=== PATIENT | male | born 1970 | race Caucasian/White ===

== ENCOUNTER 2016-12-06 15:55 | Inpatient (IN) | payer BC ==
[~2016-12-06] VITALS: Ht 190.5 cm; Wt 169.7 kg
[~2016-12-06 15:55] MED LIST: AMBIEN 10MG10 M1 PO; ATIVAN0.5 MG PO; ATIVAN2 MG PO; BENEMID500 MG PO; BIAXIN 500MG T500 MG PO; BUTORPHANOL10 MG/M1 NS; CO Q-1010 M1 PO; COLACE 100100 MG/CAP PO; FOLIC ACID 40400 MCG PO; FOLIC ACID PO; IMURAN 50MG TAB50 MG PO; LEVOTHROID0.125 MG PO; LEVOXYL0.125 MG PO; MELATONIN5 M1 SL; METHOTREXA2.5 MG/TAB PO; METHOTREXATE25 MG/M2 IJ; MICARDIS20 MG PO; MULTIPLE VITAMI1 CAP PO; MVI PO; NO HOME MEDICATIONS; NORCO 325 MG-7.1 TAB PO; PERCOCET 325 MG1 TAB PO; PERFOROMIS20 MCG/2 M IH; ROXICODONE 55 MG/TAB PO; SINGULAIR 110 MG/TAB PO; SYMBICORT1 AE1; TUDORZA IH; TYLENOL 500MG500 MG PO; VICODIN 5/5001 UDTAB PO; XARELTO10 MG PO; ZESTRIL 10MG10 MG PO; ZYRTEC 10MG10 MG PO
[2017-02-06] VITALS (11 sets, daily range): BP systolic 101–143; BP diastolic 47–77; PULSE 57–74; TEMP 98–98.3
[2017-02-06] MEDS ORDERED: SINGULAIR 110 MG/TAB PO (07:55)
[2017-02-07 00:06] VITALS: BP 143/70; PULSE 110; TEMP 98.1
[2017-02-07 04:00] VITALS: BP 137/69; PULSE 111; TEMP 98.2
[2017-02-07 06:17] LABS: HEMATOCRIT 38.7 % (42.0-52.0); HEMOGLOBIN 12.4 g/dl (13.5-18.0)
[2017-02-07 07:30] VITALS: BP 137/63; PULSE 95; TEMP 98.8
[2017-02-07 11:40] VITALS: BP 119/67; PULSE 82; TEMP 98.1
[2017-02-07 16:15] VITALS: BP 139/67; PULSE 83; TEMP 98.4
[2017-02-07 20:03] VITALS: BP 127/68; PULSE 92; TEMP 98.4
[2017-02-08 02:40] VITALS: BP 127/71; PULSE 49; TEMP 98.2
[2017-02-08 06:03] VITALS: BP 105/58; PULSE 69; TEMP 98.8
[2017-02-08 07:17] LABS: HEMATOCRIT 38.6 % (42.0-52.0); HEMOGLOBIN 12.3 g/dl (13.5-18.0)
[2017-02-08 07:45] VITALS: BP 132/66; PULSE 98; TEMP 97.9
[2017-02-08 13:15] VITALS: BP 133/69; PULSE 103
== END 2017-02-08 14:25 | disposition home health service (06) | DRG 470 ==
LOC: JCC 02-06 06:44
PROVIDERS: Orthopaedic Surgery
PROC: 0SRD0J9 Replacement of Left Knee Joint with Synthetic Substitute, Cemented, Open Approach (ICD-10-PCS; principal; 2017-02-06 07:30)
DX: M17.5 Other unilateral secondary osteoarthritis of knee (principal); Z68.42 Body mass index [BMI] 45.0-49.9, adult; E66.01 Morbid (severe) obesity due to excess calories; Z87.891 Personal history of nicotine dependence
CPT/HCPCS: A4315; A9284; C1713; C1776; J1170; J2250; J2704; J7120

== ENCOUNTER → 2017-01-30 | Outpatient (CLI) | payer BC ==
[2017-01-30 14:45] LABS: HIV 1/2 Antibodies Non-Reactive; HIV-1p24 Antigen Non-Reactive
== END ==
LOC: COL.LAB 10:56
PROVIDERS: Orthopaedic Surgery
DX: Z01.812 Encounter for preprocedural laboratory examination (principal)

== ENCOUNTER 2018-10-10 14:45 | Outpatient (RCR) | payer BC ==
[2018-10-14] MEDS ORDERED: IMURAN 50MG TAB50 MG PO (15:28)
== END 2018-12-16 | disposition home or self-care (01) ==
LOC: WSST
DX: J38.7 Other diseases of larynx (principal); K21.9 Gastro-esophageal reflux disease without esophagitis; J44.9 Chronic obstructive pulmonary disease, unspecified; Z87.891 Personal history of nicotine dependence

== ENCOUNTER 2018-10-14 14:56 | Emergency (ER) | payer BC ==
[~2018-10-14] VITALS: Ht 182.9 cm; Wt 168.2 kg
[2018-10-14 15:06] VITALS: TEMP 97.7
[2018-10-14] MEDS ORDERED: IMURAN 50MG TAB50 MG PO (15:28)
[2018-10-14 16:02] LABS: BASO % 0.3 % (0.0-2.0); EOS # 0.1 (0.0-0.7); EOS % 0.8 % (0-4.0); GRAN # 4.7 (1.4-6.5); GRAN % 74.8 % (42.2-75.2); HEMATOCRIT 40.9 % (42.0-52.0); HEMOGLOBIN 13.5 g/dl (13.5-18.0); LYMPH # 0.7 (1.2-3.4); LYMPH % 11.1 % (20.0-51.0); MEAN CELL VOLUME 93 fl (80.0-100.0); MEAN CORPUSCULAR HEMOGLOBIN 31 pg (27.0-31.0); MEAN CORPUSCULAR HGB CONC 33 g/dl (33.0-37.0); MEAN PLATELET VOLUME 10.3 fl (7.4-10.4); MONO # 0.8 (0.1-0.6); MONO % 12.5 % (1.7-9.3); PLATELET COUNT 187 K/mm3 (130-400); RED BLOOD COUNT 4.41 M/mm3 (4.20-5.60); REDCELL DISTRIBUTION WIDTH-CV 14.6 % (11.5-14.5)
[2018-10-14 16:04] LABS: INR 0.9 (0.8-3.0); PROTHROMBIN TIME 10.5 SECONDS (9.7-12.8)
[2018-10-14 16:09] LABS: ALANINE AMINOTRANSFERASE 35 U/L (21-72); ALBUMIN 3.4 gm/dL (3.5-5.0); ALKALINE PHOSPHATASE 99 U/L (50-136); AMYLASE 86 U/L (30-110); ANION GAP 7 mmol/L (7-16); AST,SGOT 24 U/L (15-37); BILIRUBIN,TOTAL 0.2 mg/dL (0.0-1.0); BLOOD UREA NITROGEN 24 mg/dL (9-20); CALCIUM 8.8 mg/dL (8.4-10.2); CARBON DIOXIDE 26 mmol/L (22-30); CHLORIDE 108 mmol/L (98-107); CREATININE, serum 1.15 mg/dL (0.66-1.25); GLUCOSE 140 mg/dL (74-106); LIPASE 103 U/L (23-300); POTASSIUM 4.3 mmol/L (3.4-5.0); SODIUM 140 mmol/L (137-145); TOTAL PROTEIN 6.2 gm/dL (6.4-8.2)
[2018-10-14 16:28] LABS: TROPONIN-I < 0.012 ng/mL (0.000-0.035)
[2018-10-14 16:38] LABS: C-REACTIVE PROTEIN 1.6 mg/dL (0.0-0.9)
[2018-10-14 16:55] LABS: COLLECTION METHOD CLEAN CATCH
[2018-10-14 17:01] LABS: PH 5 (5-8); SQUAMOUS EPITHELIAL None Seen /hpf; URINE APPEARANCE Clear; URINE BACTERIA None Seen /hpf; URINE BILIRUBIN Negative (NEGATIVE); URINE BLOOD 1+ (NEGATIVE); URINE COLOR Yellow; URINE GLUCOSE Negative (NEGATIVE); URINE KETONE Negative (NEGATIVE); URINE LEUKOCYTE ESTERASE Negative (NEGATIVE); URINE NITRATE Negative (NEGATIVE); URINE PROTEIN(semi-quant) Negative (NEGATIVE); URINE RBC 0-2 /hpf; URINE UROBILINOGEN Negative (NEGATIVE)
[2018-10-14 20:20] VITALS: BP 108/81; PULSE 64
== END 2018-10-14 20:26 | disposition home or self-care (01) ==
LOC: COL.ER 14:56
PROVIDERS: Emergency Medicine
DX: R55 Syncope and collapse (principal); E86.0 Dehydration; J44.9 Chronic obstructive pulmonary disease, unspecified; E03.9 Hypothyroidism, unspecified; E66.9 Obesity, unspecified; Z87.891 Personal history of nicotine dependence
CPT/HCPCS: J7030; Q9967

== ENCOUNTER 2019-02-13 08:26 | Day surgery (SDC) | payer BC ==
[~2019-02-13] VITALS: Ht 183 cm; Wt 176.0 kg
[2019-02-13 09:30] VITALS: BP 123/69; PULSE 67; TEMP 98
[2019-02-13] MEDS ORDERED: STIOLTO RESPIMAT4 GM IH (09:37)
[2019-02-13] MEDS ORDERED: LUTEIN20 M1 PO (09:39)
[2019-02-13] MEDS ORDERED: VITAMIN B COMPL1 SGL PO (09:39)
[2019-02-13] MEDS ORDERED: DIGESTIVE PROB1 EACH PO (09:40)
[2019-02-13] MEDS ORDERED: CARDIZEM CD 12120 MG PO (09:43)
[2019-02-13] MEDS ORDERED: PREDNISONE10 MG PO (09:43)
[2019-02-13] MEDS ORDERED: CLEOCIN HCL300 MG PO (09:51)
[2019-02-13 10:15] VITALS: BP 126/70; PULSE 79
--- NOTE | 2019-02-13 10:27 | NUR ---
Discharge instructions given to pt.Dressing observed clean,dry,intact.pt escorted out by this nurse.
== END 2019-02-13 10:31 | disposition home or self-care (01) ==
LOC: COL.CAR 08:26
DX: I47.1 Supraventricular tachycardia (principal); I12.9 Hypertensive chronic kidney disease with stage 1 through stage 4 chronic kidney disease, or unspecified chronic kidney disease; N18.1 Chronic kidney disease, stage 1; J44.9 Chronic obstructive pulmonary disease, unspecified; M31.30 Wegener's granulomatosis without renal involvement; Z87.891 Personal history of nicotine dependence; E07.9 Disorder of thyroid, unspecified; R56.9 Unspecified convulsions; Z88.1 Allergy status to other antibiotic agents; Z88.2 Allergy status to sulfonamides; Z79.899 Other long term (current) drug therapy

== ENCOUNTER → 2019-03-21 | Outpatient (CLI) | payer BC ==
[~2019-03-21] MED LIST changes: +CARDIZEM CD 12120 MG PO; +CLEOCIN HCL300 MG PO; +DIGESTIVE PROB1 EACH PO; +LUTEIN20 M1 PO; +PREDNISONE10 MG PO; +STIOLTO RESPIMAT4 GM IH; +VITAMIN B COMPL1 SGL PO
[2019-03-21 10:33] LABS: HEMATOCRIT 42.7 % (42.0-52.0); HEMOGLOBIN 13.9 g/dl (13.5-18.0); MEAN CELL VOLUME 88 fl (80.0-100.0); MEAN CORPUSCULAR HEMOGLOBIN 29 pg (27.0-31.0); MEAN CORPUSCULAR HGB CONC 33 g/dl (33.0-37.0); MEAN PLATELET VOLUME 10.2 fl (7.4-10.4); PLATELET COUNT 220 K/mm3 (130-400); RED BLOOD COUNT 4.86 M/mm3 (4.20-5.60); REDCELL DISTRIBUTION WIDTH-CV 14.6 % (11.5-14.5)
[2019-03-21 10:48] LABS: ERYTHROCYTE SEDIMENTATION RATE 15 mm/hr (0-15)
== END ==
LOC: COL.LAB 10:14
PROVIDERS: Orthopaedic Surgery
DX: Z01.812 Encounter for preprocedural laboratory examination (principal)

== ENCOUNTER 2019-04-25 09:15 | Outpatient (RCR) | payer BC | END 2019-04-28 | disposition home or self-care (01) | LOC: WSC | DX: M06.9 Rheumatoid arthritis, unspecified (principal); Z96.653 Presence of artificial knee joint, bilateral | CPT/HCPCS: G0283-GP ==

== ENCOUNTER 2019-07-25 09:00 | Outpatient (RCR) | payer BC | END 2019-07-29 | disposition still patient (30) | LOC: WSPT | DX: M06.9 Rheumatoid arthritis, unspecified (principal); Z96.652 Presence of left artificial knee joint ==

== ENCOUNTER 2019-08-01 09:25 | Outpatient (RCR) | payer BC | END 2019-08-30 11:27 | disposition home or self-care (01) | LOC: WSPT 09:25 | DX: M06.9 Rheumatoid arthritis, unspecified (principal); Z96.653 Presence of artificial knee joint, bilateral ==

== ENCOUNTER → 2020-07-29 | Outpatient (CLI) | payer BC | LOC: COL.RAD 11:46 | DX: M47.817 Spondylosis without myelopathy or radiculopathy, lumbosacral region (principal) ==

== ENCOUNTER 2021-07-22 10:00 | Outpatient (RCR) | payer BC | END 2021-08-06 | disposition home or self-care (01) | LOC: PT.GENESIS | DX: M17.0 Bilateral primary osteoarthritis of knee (principal) ==

== ENCOUNTER 2021-10-01 10:00 | Outpatient (RCR) | payer BC | END 2021-10-04 | disposition home or self-care (01) | LOC: PT.GENESIS | DX: M17.0 Bilateral primary osteoarthritis of knee (principal); M06.9 Rheumatoid arthritis, unspecified ==

== ENCOUNTER 2021-11-02 13:00 | Outpatient (RCR) | payer BC | END 2021-11-04 | disposition home or self-care (01) | LOC: PT.GENESIS | DX: M17.0 Bilateral primary osteoarthritis of knee (principal) ==

== ENCOUNTER → 2021-11-30 | Outpatient (CLI) | payer BC | LOC: COL.VAS 10:06 | DX: R42 Dizziness and giddiness (principal) ==

== ENCOUNTER 2021-12-03 15:15 | Outpatient (RCR) | payer BC | END 2021-12-04 | disposition home or self-care (01) | LOC: PT.GENESIS | DX: M17.0 Bilateral primary osteoarthritis of knee (principal) ==

== ENCOUNTER → 2022-01-04 | Outpatient (RCR) | payer BC | END | disposition home or self-care (01) | LOC: PT.GENESIS | DX: M17.0 Bilateral primary osteoarthritis of knee (principal) ==

== ENCOUNTER 2022-01-28 10:45 | Outpatient (RCR) | payer BC | END 2022-02-03 | disposition still patient (30) | LOC: PT.GENESIS | DX: M17.0 Bilateral primary osteoarthritis of knee (principal) ==

== ENCOUNTER 2022-02-08 13:46 | Emergency (ER) | payer BC ==
[~2022-02-08] VITALS: Ht 182.9 cm; Wt 116.4 kg
[2022-02-08 13:54] VITALS: TEMP 98.2
[2022-02-08 14:19] LABS: BASO # 0.1 K/mm3 (0.0-0.2); BASO % 0.6 % (0.0-2.0); EOS # 0.1 K/mm3 (0.0-0.7); GRAN # 8.1 K/mm3 (1.4-6.5); GRAN % 88.9 % (42.2-75.2); LYMPH # 0.2 K/mm3 (1.2-3.4); LYMPH % 2.4 % (20.0-51.0); MEAN CELL VOLUME 95 fl (80.0-100.0); MEAN CORPUSCULAR HEMOGLOBIN 32 pg (27-31); MEAN CORPUSCULAR HGB CONC 33 g/dl (33.0-37.0); MEAN PLATELET VOLUME 9.8 fl (7.4-10.4); MONO # 0.6 K/mm3 (0.1-0.6); MONO % 6.7 % (1.7-9.3); PLATELET COUNT 336 K/mm3 (130-400); RED BLOOD COUNT 3.81 M/mm3 (4.20-5.60); REDCELL DISTRIBUTION WIDTH-CV 14.6 % (11.5-14.5)
[2022-02-08 14:20] LABS: HEMATOCRIT 36.1 % (42.0-52.0)
[2022-02-08 14:36] LABS: BILIRUBIN,TOTAL 0.4 mg/dL (0.2-1.2); C-REACTIVE PROTEIN 13.05 mg/dL (0.00-0.50); CALCIUM 9.7 mg/dL (8.4-10.2); CREATININE, serum 1.29 mg/dL (0.72-1.25); POTASSIUM 4.2 mmol/L (3.5-4.5); TOTAL PROTEIN 7.1 gm/dL (6.2-8.1)
[2022-02-08 15:57] VITALS: BP 122/89; PULSE 94
== END 2022-02-08 16:01 | disposition home or self-care (01) ==
LOC: COL.ER 13:46
PROVIDERS: Family Medicine
DX: D63.8 Anemia in other chronic diseases classified elsewhere (principal); E86.0 Dehydration; Z86.16 Personal history of COVID-19; Z28.310 Unvaccinated for COVID-19
CPT/HCPCS: J2405; J7120

== ENCOUNTER 2022-02-27 23:51 | Emergency (ER) | payer BC ==
[~2022-02-27] VITALS: Ht 182.9 cm; Wt 122.7 kg
[2022-02-28 00:40] LABS: HEMOGLOBIN 10.7 g/dl (13.5-18.0); MEAN CELL VOLUME 98 fl (80.0-100.0); MEAN CORPUSCULAR HEMOGLOBIN 31 pg (27-31); MEAN CORPUSCULAR HGB CONC 32 g/dl (33.0-37.0); MEAN PLATELET VOLUME 10.2 fl (7.4-10.4); PLATELET COUNT 221 K/mm3 (130-400); RED BLOOD COUNT 3.46 M/mm3 (4.20-5.60); REDCELL DISTRIBUTION WIDTH-CV 16.5 % (11.5-14.5)
[2022-02-28 00:54] LABS: BAND 7 % (0-10); EOSINOPHIL 1 % (0-4); LYMPHOCYTE 7 % (20.0-51.0); NEUTROPHILS 75 % (42.0-75.2); PLATELET ESTIMATE NORMAL (NORMAL)
[2022-02-28 01:01] LABS: ALBUMIN 2.7 gm/dL (3.5-5.0); BILIRUBIN,TOTAL 0.3 mg/dL (0.2-1.2); CALCIUM 8.7 mg/dL (8.4-10.2); CREATININE, serum 1.14 mg/dL (0.72-1.25); POTASSIUM 4.1 mmol/L (3.5-4.5); TOTAL PROTEIN 5.4 gm/dL (6.2-8.1)
[2022-02-28 02:07] LABS: COLLECTION METHOD CLEAN CATCH
[2022-02-28 02:16] LABS: PH 6 (5-8); SQUAMOUS EPITHELIAL None Seen /hpf (0-10); URINE APPEARANCE Clear (CLEAR/HAZY); URINE BACTERIA None Seen /hpf (NONE SEEN); URINE BLOOD 1+ (NEGATIVE); URINE COLOR Yellow (YELLOW); URINE GLUCOSE Negative (NEGATIVE); URINE KETONE Negative (NEGATIVE); URINE NITRATE Negative (NEGATIVE); URINE PROTEIN(semi-quant) Negative (NEGATIVE); URINE UROBILINOGEN Negative (NEGATIVE)
[2022-02-28 04:34] VITALS: BP 115/78; PULSE 80; TEMP 98.6
== END 2022-02-28 04:34 | disposition home or self-care (01) ==
LOC: COL.ER 23:51
PROVIDERS: Emergency Medicine
DX: D84.9 Immunodeficiency, unspecified (principal); B34.8 Other viral infections of unspecified site
CPT/HCPCS: J0692; J7120; Q9967

== ENCOUNTER → 2022-03-03 | Outpatient (CLI) | payer BC ==
[~2022-03-03] MED LIST changes: +CALCIUM CITRAT200 M2 PO; +DEPAKOTE500 MG PO; +NATURAL MAGNES200 MG PO; +PREDNISONE20 MG PO; +RT ADVAIR 228 DISKUS IH; +SPIRIVA RE2.5 MCG/Ac IH; +SYNTHROID 0.10.15 MG PO; +TRELEGY ELLIPT1 EACH IH
== END ==
LOC: COL.RAD 10:25
DX: K57.30 Diverticulosis of large intestine without perforation or abscess without bleeding (principal); R70.0 Elevated erythrocyte sedimentation rate; Z86.79 Personal history of other diseases of the circulatory system; J98.4 Other disorders of lung; R16.0 Hepatomegaly, not elsewhere classified
CPT/HCPCS: Q9967

== ENCOUNTER 2022-03-04 10:30 | Outpatient (RCR) | payer BC ==
[~2022-03-04 10:30] MED LIST changes: -CALCIUM CITRAT200 M2 PO; -DEPAKOTE500 MG PO; -NATURAL MAGNES200 MG PO; -PREDNISONE20 MG PO; -RT ADVAIR 228 DISKUS IH; -SPIRIVA RE2.5 MCG/Ac IH; -SYNTHROID 0.10.15 MG PO; -TRELEGY ELLIPT1 EACH IH
== END 2022-03-06 | disposition home or self-care (01) ==
LOC: PT.GENESIS
DX: M17.0 Bilateral primary osteoarthritis of knee (principal)

== ENCOUNTER 2022-03-12 03:03 | Inpatient (IN) | payer BC ==
[~2022-03-12] VITALS: Ht 182.9 cm; Wt 112.9 kg
[2022-03-12 03:31] LABS: BASO % 0.5 % (0.0-2.0); EOS # 0.2 K/mm3 (0.0-0.7); EOS % 2.5 % (0.0-4.0); GRAN # 6.7 K/mm3 (1.4-6.5); GRAN % 87.6 % (42.2-75.2); HEMOGLOBIN 11.6 g/dl (13.5-18.0); LYMPH # 0.2 K/mm3 (1.2-3.4); LYMPH % 2.6 % (20.0-51.0); MEAN CELL VOLUME 95 fl (80.0-100.0); MEAN CORPUSCULAR HEMOGLOBIN 30 pg (27-31); MEAN CORPUSCULAR HGB CONC 32 g/dl (33.0-37.0); MONO # 0.4 K/mm3 (0.1-0.6); MONO % 5.5 % (1.7-9.3); PLATELET COUNT 185 K/mm3 (130-400); RED BLOOD COUNT 3.86 M/mm3 (4.20-5.60); REDCELL DISTRIBUTION WIDTH-CV 16.2 % (11.5-14.5)
[2022-03-12 03:41] LABS: HEMATOCRIT 36.6 % (42.0-52.0)
[2022-03-12 03:56] LABS: ALANINE AMINOTRANSFERASE 20 U/L (0-55); ALBUMIN 2.7 gm/dL (3.5-5.0); ALKALINE PHOSPHATASE 68 U/L (40-150); ANION GAP 11 mmol/L (7-16); AST,SGOT 14 U/L (5-34); BILIRUBIN,TOTAL 0.5 mg/dL (0.2-1.2); BLOOD UREA NITROGEN 23 mg/dL (8-26); C-REACTIVE PROTEIN 8.84 mg/dL (0.00-0.50); CARBON DIOXIDE 26 mmol/L (22-29); CHLORIDE 105 mmol/L (98-107); GLUCOSE 109 mg/dL (70-99); POTASSIUM 4.3 mmol/L (3.5-4.5); SODIUM 142 mmol/L (136-145); TOTAL PROTEIN 5.7 gm/dL (6.2-8.1)
[2022-03-12 04:03] LABS: CREATININE, serum 1.11 mg/dL (0.72-1.25)
[2022-03-12 04:10] LABS: TROPONIN-I < 0.010 ng/mL (0.00-0.033)
[2022-03-12 04:24] LABS: COLLECTION METHOD CLEAN CATCH
[2022-03-12 04:39] LABS: MUCOUS Present (NOT PRESENT); PH 7 (5-8); SQUAMOUS EPITHELIAL 0-2 /hpf (0-10); URINE APPEARANCE Clear (CLEAR/HAZY); URINE BACTERIA None Seen /hpf (NONE SEEN); URINE BLOOD 1+ (NEGATIVE); URINE COLOR Yellow (YELLOW); URINE GLUCOSE Negative (NEGATIVE); URINE KETONE Negative (NEGATIVE); URINE NITRATE Negative (NEGATIVE); URINE PROTEIN(semi-quant) Negative (NEGATIVE); URINE UROBILINOGEN Negative (NEGATIVE)
[2022-03-12] MEDS ORDERED: SYNTHROID 0.10.15 MG PO (05:22)
[2022-03-12] MEDS ORDERED: IMURAN 50MG TAB50 MG PO (05:25)
[2022-03-12] MEDS ORDERED: DEPAKOTE500 MG PO (05:26)
[2022-03-12] MEDS ORDERED: TRELEGY ELLIPT1 EACH IH (05:27)
[2022-03-12] MEDS ORDERED: NATURAL MAGNES200 MG PO (05:28)
[2022-03-12] MEDS ORDERED: CALCIUM CITRAT200 M2 PO (05:29)
--- NOTE | 2022-03-12 08:15 | NUR ---
PATIENT IS ORIENTED BUT TIRED. VSS. 02 @ 2L PER NC WITH SATS IN MID 90'S. PATIENT REPORTS HE HAD A COLONOSCOPY LAST THUR AND HAS FELT SOA AND NOTED DECREASED 02 SATS AT HOME. NOTED DEMINISHED A&P LUNG BASES. NO COUGH NOTED AT THIS TIME. PATIENT HAS HX OF WEGNENERS, OA, AND GOODPASTURE SUNDROME. HE IS IMMUNE COMPROMISED. HEAD TO TOE ASSESSMENT COMPLETE. TOLERATING GENERAL DIET. AT BEDSIDE. PATIENT WANTING TO SLEEP HE IS SO TIRED. LIGHTS TURNED DOWN, CALL LIGHT IN REACH. IS LEAVING FOR A LITTLE WHILE. NO OTHER NEEDS.
[2022-03-12 08:39] VITALS: BP 111/46; PULSE 85; TEMP 98.8
[2022-03-12 11:12] VITALS: BP 139/72; PULSE 89; TEMP 99.1
[2022-03-12 12:00] VITALS: TEMP 99.9
--- NOTE | 2022-03-12 12:00 | NUR ---
PATIENT CALLED OUT REPORTING HE FEELS LIKE HIS FEVER IS RETURNING AND HAS THE CHILLS. CALLED HOSPITALIST FOR PRN TYLENOL ORDERS, GIVEN. ALSO GAVE SCHEDULED IV ABX AND IV STEROIDS. PATIENT WAS LAYING FLAT AND STATES HE IS HAVING A HARDER TIME CATCHING HIS BREATHE. 02 SATS ARE 100% ON 2L PER NC. HOB ELEVATED TO 30 DEGREES AND PATIENT POSITIONED TO COMFORT. HE REPORTS HIS BREATHING EFFORT IS BETTER WITH HOB ELEVATED. AT BEDSIDE. PATIENT RESTING QUIETLY.
--- NOTE | 2022-03-12 13:30 | NUR ---
Concessionist prayed and offered support with patient while spouse was in room.
[2022-03-12 16:21] VITALS: BP 115/70; PULSE 88; TEMP 97.9
[2022-03-12 20:01] VITALS: BP 110/65; PULSE 87; TEMP 97.6
[2022-03-13] VITALS (7 sets, daily range): BP systolic 114–128; BP diastolic 62–82; PULSE 67–94; TEMP 97.4–97.9
--- NOTE | 2022-03-13 08:00 | NUR ---
PATIENT IS A&O AND SITTING UP IN BEDSIDE CHAIR WITH BREAKFAST TRAY. NO C/O N/V, FEVER OR DIZZINESS. AM MEDS GIVEN. LEFT FORARM IV TO INT. HEAD TO TOE ASSESSMENT WNL. NOW AT BEDSIDE. NO OTHER NEEDS. CALL LIGHT IN REACH.
[2022-03-13 10:09] LABS: HEMATOCRIT 38.8 % (42.0-52.0); HEMOGLOBIN 12.4 g/dl (13.5-18.0); MEAN CELL VOLUME 94 fl (80.0-100.0); MEAN CORPUSCULAR HEMOGLOBIN 30 pg (27-31); MEAN CORPUSCULAR HGB CONC 32 g/dl (33.0-37.0); MEAN PLATELET VOLUME 9.8 fl (7.4-10.4); PLATELET COUNT 212 K/mm3 (130-400); RED BLOOD COUNT 4.14 M/mm3 (4.20-5.60); REDCELL DISTRIBUTION WIDTH-CV 15.9 % (11.5-14.5)
[2022-03-13 10:22] LABS: CREATININE, serum 1.13 mg/dL (0.72-1.25); POTASSIUM 4.2 mmol/L (3.5-4.5)
[2022-03-13 10:25] LABS: ANISOCYTOSIS 1+; BAND 15 % (0-10); LYMPHOCYTE 3 % (20.0-51.0); NEUTROPHILS 82 % (42.0-75.2); PLATELET ESTIMATE NORMAL (NORMAL)
--- NOTE | 2022-03-13 10:35 | NUR ---
AT BEDSIDE. PLAN IS FOR BRONCH IN AM. ANESTHESIA NOTIFIED.
--- NOTE | 2022-03-13 13:15 | NUR ---
SW met with patient to complete intake. Patient states he lives in [facility] with his Yumiko [phone] who was present at intake. Patient states that he does not utilize DME and is indpendent with ADL's. PCP is Dr. Tenorio, and pharmacy is [facility]. is appointed [facility]. Patient plans to return to his home up on [place]. Patient provides that he would like information provided to his [facility] physicians due to the auto-immune diseases. He states that previously his physicians did not get the update information and it was hard for him to coordinate services and appropriate appointments he needed prior to DC. SW provided information will be provided so that documentation or information could be relayed to the proper parties. SW will continue to follow. DC plan: home
[2022-03-13 17:19] LABS: TB GOLD INTERPRETATION Negative (Negative)
--- NOTE | 2022-03-13 18:50 | NUR ---
THE PATIENT IS SITTING IN THE [facility] AT THIS TIME. HE STATES HE FEELS A HEADACHE AND HAS REQUESTED TYLENOL NOW AND THEN AGAIN AT MIDNIGHT. HE ALSO REQUESTED HIS LORAZEPAM BE RESUMED. CONTACTED SOHAIL HUYNH WHO STATES THIS IS FINE. ASSESSMENT COMPLETED. NO OTHER CONCERNS AT THIS TIME.
[2022-03-14] VITALS (9 sets, daily range): BP systolic 100–124; BP diastolic 44–83; PULSE 57–94; TEMP 97.3–97.8
--- NOTE | 2022-03-14 06:14 | NUR ---
This patient had an uneventful evening. Slept well, has been NPO since midnight for his Bronch that is scheduled with Dr. Dotson at 0830. Denies any pain, headache that he did have has been resolved. No other concerns. Will report to day shift RN.
--- NOTE | 2022-03-14 08:22 | NUR ---
PT TO T[facility]RELL WITH VEENA REDDY AT THIS TIME.
--- NOTE | 2022-03-14 09:35 | NUR ---
PT RESTI;NG IN BED. PT REMAINS NPO FOR CARDIAC PROCEFURE.VSS AM ASSESSMENTS COMPLETE. PT REPORTING BLE EDEMA AND PAST CELLULITIS.
--- NOTE | 2022-03-14 10:09 | NUR ---
PT TO ROOM 348 PER CART WITH REPORT FROM VEENA REDDY PACU @1366. VSS, ASSESSMENTS COMPLETE. PT A/O X4, ECHO DONE AT THIS TIME.
[2022-03-14] MEDS ORDERED: PREDNISONE20 MG PO ×2 (10:59→11:35)
[2022-03-14] MEDS ORDERED: SPIRIVA RE2.5 MCG/Ac IH (11:29)
[2022-03-14] MEDS ORDERED: RT ADVAIR 228 DISKUS IH (11:29)
[2022-03-14] MEDS ORDERED: PREDNISONE10 MG PO (11:35)
--- NOTE | 2022-03-14 12:52 | NUR ---
An exercise oximetry was ordered. RT notified SW that the patient did not qualify for oxygen. The patient is to discharge back home today, 03/14. No additional needs at this time.
--- NOTE | 2022-03-14 13:38 | NUR ---
REVIEWED WITH PT AND ALL DISCHARGE INSTRUCTIONS. QUESTIONS SOLICITED AND ANSWERED. PT LEFT UNIT AMBULATORY.
[2022-03-18 13:53] LABS: HISTOPLASMA ID Negative (Negative); HISTOPLASMA MYCELIAL Negative (Negative); HISTOPLASMA YEAST Negative (Negative)
[2022-03-19 15:23] LABS: COCCIDIOIDES AB IGG Negative (Negative); COCCIDIOIDES AB IGM Negative (Negative); COCCIDIOIDES CF Negative (Negative)
== END 2022-03-14 13:39 | disposition home or self-care (01) | DRG 193 ==
LOC: COL.ER 03:03 → SURG 06:36
PROVIDERS: Emergency Medicine; Internal Medicine Pulmonary Disease; ADMIT Internal Medicine
PROC: 0B9H8ZX Drainage of Lung Lingula, Via Natural or Artificial Opening Endoscopic, Diagnostic (ICD-10-PCS; 2022-03-14)
PROC: 0B9F8ZX Drainage of Right Lower Lung Lobe, Via Natural or Artificial Opening Endoscopic, Diagnostic (ICD-10-PCS; 2022-03-14)
PROC: 0BD68ZX Extraction of Right Lower Lobe Bronchus, Via Natural or Artificial Opening Endoscopic, Diagnostic (ICD-10-PCS; 2022-03-14)
PROC: 0BD48ZX Extraction of Right Upper Lobe Bronchus, Via Natural or Artificial Opening Endoscopic, Diagnostic (ICD-10-PCS; 2022-03-14)
PROC: 0BD58ZX Extraction of Right Middle Lobe Bronchus, Via Natural or Artificial Opening Endoscopic, Diagnostic (ICD-10-PCS; 2022-03-14)
PROC: 0B9J8ZX Drainage of Left Lower Lung Lobe, Via Natural or Artificial Opening Endoscopic, Diagnostic (ICD-10-PCS; principal; 2022-03-14 08:30)
DX: J18.9 Pneumonia, unspecified organism (principal); J96.01 Acute respiratory failure with hypoxia; M31.30 Wegener's granulomatosis without renal involvement; D84.9 Immunodeficiency, unspecified; M06.9 Rheumatoid arthritis, unspecified; Z20.822 Contact with and (suspected) exposure to COVID-19; F41.9 Anxiety disorder, unspecified; G47.33 Obstructive sleep apnea (adult) (pediatric); E66.9 Obesity, unspecified; J45.909 Unspecified asthma, uncomplicated; R30.0 Dysuria; E03.9 Hypothyroidism, unspecified; Z96.653 Presence of artificial knee joint, bilateral; Z88.1 Allergy status to other antibiotic agents; Z88.0 Allergy status to penicillin; Z88.2 Allergy status to sulfonamides; Z88.8 Allergy status to other drugs, medicaments and biological substances; Z87.891 Personal history of nicotine dependence; Z72.89 Other problems related to lifestyle; Z79.890 Hormone replacement therapy; Z68.33 Body mass index [BMI] 33.0-33.9, adult
CPT/HCPCS: 99222-AI; 99232-AI; 99239; J0692; J2704; J2920; J7120; J7512; Q9967

== ENCOUNTER 2022-03-22 13:45 | Outpatient (RCR) | payer BC ==
[~2022-03-22 13:45] MED LIST changes: +CALCIUM CITRAT200 M2 PO; +DEPAKOTE500 MG PO; +NATURAL MAGNES200 MG PO; +PREDNISONE20 MG PO; +RT ADVAIR 228 DISKUS IH; +SPIRIVA RE2.5 MCG/Ac IH; +SYNTHROID 0.10.15 MG PO; +TRELEGY ELLIPT1 EACH IH
== END 2022-03-22 15:13 | disposition home or self-care (01) ==
LOC: PT.GENESIS 13:45
DX: M17.0 Bilateral primary osteoarthritis of knee (principal)

== ENCOUNTER → 2022-05-02 | Outpatient (CLI) | payer BC | LOC: COL.RAD 09:49 | DX: R91.8 Other nonspecific abnormal finding of lung field (principal) ==

== ENCOUNTER 2022-05-31 06:07 | Emergency (ER) | payer BC ==
[~2022-05-31] VITALS: Ht 182.9 cm; Wt 140.9 kg
[2022-05-31 06:17] VITALS: TEMP 98.6
[2022-05-31] MEDS ORDERED: ZOFRAN ODT4 MG PO (06:40)
[2022-05-31 07:11] LABS: BASO % 0.4 % (0.0-2.0); EOS % 0.3 % (0.0-4.0); GRAN # 9.8 K/mm3 (1.4-6.5); HEMATOCRIT 44.1 % (42.0-52.0); HEMOGLOBIN 13.8 g/dl (13.5-18.0); LYMPH # 0.5 K/mm3 (1.2-3.4); MEAN CELL VOLUME 96 fl (80.0-100.0); MEAN CORPUSCULAR HEMOGLOBIN 30 pg (27-31); MEAN CORPUSCULAR HGB CONC 31 g/dl (33.0-37.0); MEAN PLATELET VOLUME 10.5 fl (7.4-10.4); MONO # 0.9 K/mm3 (0.1-0.6); MONO % 7.6 % (1.7-9.3); PLATELET COUNT 157 K/mm3 (130-400); RED BLOOD COUNT 4.61 M/mm3 (4.20-5.60); REDCELL DISTRIBUTION WIDTH-CV 15.9 % (11.5-14.5)
[2022-05-31 07:40] LABS: ALBUMIN 3.8 gm/dL (3.5-5.0); BILIRUBIN,TOTAL 0.5 mg/dL (0.2-1.2); CALCIUM 9.4 mg/dL (8.4-10.2); CREATININE, serum 1.03 mg/dL (0.72-1.25); TOTAL PROTEIN 6.3 gm/dL (6.2-8.1)
[2022-05-31 08:53] VITALS: BP 115/57; PULSE 65
== END 2022-05-31 08:53 | disposition home or self-care (01) ==
LOC: COL.ER 06:07
PROVIDERS: Personal Emergency Response Attendant
DX: G43.909 Migraine, unspecified, not intractable, without status migrainosus (principal)
CPT/HCPCS: J0595; J0780; J1200; J1885; J7030

== ENCOUNTER 2022-11-16 07:38 | Day surgery (SDC) | payer BC ==
[~2022-11-16] VITALS: Ht 182.9 cm; Wt 156.3 kg
[2022-11-16] VITALS (9 sets, daily range): BP systolic 119–136; BP diastolic 70–101; PULSE 56–66; TEMP 98.1
[~2022-11-16 07:38] MED LIST changes: +ZOFRAN ODT4 MG PO
--- NOTE | 2022-11-16 09:26 | NUR ---
See merge for all medication, assessment,intervention, and vital sign times. Dr. Garcia reports he will not flush pocket with antibiotic.
--- NOTE | 2022-11-16 10:14 | NUR ---
Pt back to express unit from [facility] after loop recorder removal. Pt is alert and oriented, pwd, with reg and unlabored. resps. Pt denies any complaints of pain etc. there is a clean dry and intact dressing at site of loop removal. pt placed on monitors, call light in reach. food ordered, coffee provided.
--- NOTE | 2022-11-16 10:29 | NUR ---
PT BACK FROM [facility]. STERI STRIPS AND BANDAGE TO REMOVAL SITE. SNACKS OFFERED. VITALS WNL
--- NOTE | 2022-11-16 12:23 | NUR ---
PT ATE LUNCH 100%. PT FEELS STABLE ON FEET. AMBULATES WITH NO ASSISTANCE TO RESTROOM. DISCHARGE INSTRUCTIONS GONE OVER AND UNDERSTANDING STATED. JOSE DC'D. PT WHEELED TO ENTRANCE. MIL TO DRIVE HOME
== END 2022-11-16 12:30 | disposition home or self-care (01) ==
LOC: COL.CAR 07:38
DX: Z45.09 Encounter for adjustment and management of other cardiac device (principal)
CPT/HCPCS: J2250; J3010; J7050